=== PATIENT | male | born 1980 | race Caucasian/White ===

== ENCOUNTER 2019-06-20 12:10 | Emergency (ER) | payer MEDICAID, OTHER, SELFPAY ==
--- NOTE | 2019-06-20 12:38 | NUR ---
VITALS OBTAINED BY THIS TECH IN TRIAGE
[2019-06-20] MEDS ORDERED: PROPOFOL 10 MG/ML, 20ML IVPush ONE ×2 (13:00)
[2019-06-20] MEDS ORDERED: SODIUM CHLORIDE FLUSH 10ML SYR IVF ONE (13:00)
[2019-06-20] MEDS ORDERED: PROPOFOL 10 MG/ML, 20ML ONE (13:15)
--- NOTE | 2019-06-20 13:38 | NUR ---
CLOSED REDUCTION OR R WRIST COMPLETED, SEE PROCEDURE NOTED. PT TOLERATED WELL. VSS
[2019-06-20 14:28] VITALS: BP 171/102
--- NOTE | 2019-06-20 14:29 | NUR ---
break RN note: pt has had right wrist reduced, splinted. pt is a&o, resps even and unlabored, speaking in full sentences without difficulty. pt notes pain level is down from 10/10 (on arrival) to 6/10 at this time. cms intact to right hand. splint in place with sling. all monitors in place. nsr on compliance monitor with no ectopy noted. xray resulted, chart up for recheck. awaiting MD and dispo.
--- NOTE | 2019-06-20 14:46 | NUR ---
REPORT GIVEN BACK TO PRIMARY SYDNEY DENISE.
== END 2019-06-20 15:26 | disposition home or self-care (01) ==
LOC: ED 15:13
DX: S52.501A Unspecified fracture of the lower end of right radius, initial encounter for closed fracture (principal); W18.39XA Other fall on same level, initial encounter; Y93.51 Activity, roller skating (inline) and skateboarding; Y92.89 Other specified places as the place of occurrence of the external cause; Y99.8 Other external cause status
CPT/HCPCS: 25605; 99285